=== PATIENT | female | born 1950 | race African-American/Black ===

== ENCOUNTER 2020-05-01 15:25 | Outpatient (CLI) | payer MEDICARE ==
--- NOTE | 2020-05-01 17:40 | ULT ---
SOFT TISSUE ULTRASOUND OF THE RIGHT POSTEROMEDIAL THIGH 05/01/20 INDICATION: Swelling within the right posterior medial thigh extending down to the medial knee with history of va ricose veins. FINDINGS: Mcallister scale, color Doppler images were obtained of the region of interest. No suspicious soft tissue m ass is evident. A few small varicosities are seen within the posteromedial aspect of the right thigh. IMPRESSION: Mild venous varicosities within the soft tissues of the posteromedial thigh. No soft tissue mass or l ymphadenopathy. POS: [facility]
== END 2020-05-01 15:26 | disposition home or self-care (01) ==
LOC: BICULT 15:25
PROVIDERS: ATTEND Family Medicine
DX: M79.89 Other specified soft tissue disorders (principal); I83.891 Varicose veins of right lower extremity with other complications
CPT/HCPCS: 76999